=== PATIENT | female | born 1970 | race Caucasian/White ===

== ENCOUNTER 2017-09-16 20:01 | Emergency (ER) | payer BC ==
[2017-09-16] MEDS ORDERED: IBUPROFEN 200 MG TAB PO ONE (20:33)
[2017-09-16] MEDS ORDERED: IBUPROFEN 400 MG TAB ONE (20:33)
--- NOTE | 2017-09-16 21:27 | EDPHYS ---
Physician Documentation [facility] Name: Saritha Rosas Age: 47 yrs Sex: Female : 1970 Arrival Date: 09/16/2017 Time: 20:06 Bed 25 Private MD: ED Physician Sujit Duran HPI: 09/16 21:14 This 47 yrs old Female presents to ER via Wheelchair with complaints of Inner gs thigh pain Right, Fall Injury. 21:14 The patient presents with an injury, pain, that is acute. The complaints affect the gs medial aspect of right thigh. Context: The problem was sustained at home, resulted from a mis-step, hyper abduction. Onset: The symptoms/episode began/occurred acutely, just prior to arrival. Modifying factors: the symptoms are aggravated by movement. Associated signs and symptoms: Pertinent negatives calf tenderness, numbness, weakness. Severity of symptoms: At their worst the symptoms were moderate, in the emergency department the symptoms are unchanged. The patient has not experienced similar symptoms in the past. 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 - Social history:: Smoking status: Patient/guardian denies using tobacco. ROS: 21:23 All other systems are negative. gs Exam: 21:23 Head/Face: Normocephalic, atraumatic. Eyes: Pupils equal round and reactive to light, gs extra-ocular motions intact. Lids and lashes normal. Conjunctiva and sclera are non-icteric and not injected. Cornea within normal limits. Periorbital areas with no swelling, redness, or edema. ENT: Nares patent. No nasal discharge, no septal abnormalities noted. Tympanic membranes are normal and external auditory canals are clear. Oropharynx with no redness, swelling, or masses, exudates, or evidence of obstruction, uvula midline. Mucous membranes moist. Neck: Trachea midline, no thyromegaly or masses palpated, and no cervical lymphadenopathy. Supple, full range of motion without nuchal rigidity, or vertebral point tenderness. No Meningismus. Chest/axilla: Normal chest wall appearance and motion. Nontender with no deformity. No lesions are appreciated. Cardiovascular: Regular rate and rhythm with a normal S1 and S2. No gallops, murmurs, or rubs. Normal PMI, no JVD. No pulse deficits. Respiratory: Lungs have equal breath sounds bilaterally, clear to auscultation and percussion. No rales, rhonchi or wheezes noted. No increased work of breathing, no retractions or nasal flaring. Abdomen/GI: Soft, non-tender, with normal bowel sounds. No distension or tympany. No guarding or rebound. No evidence of tenderness throughout. Back: No spinal tenderness. No costovertebral tenderness. Full range of motion. Skin: Warm, dry with normal turgor. Normal color with no rashes, no lesions, and no evidence of cellulitis. Neuro: Awake and alert, GCS 15, oriented to person, place, time, and situation. Cranial nerves II-XII grossly intact. Motor strength 5/5 in all extremities. Sensory grossly intact. Cerebellar exam normal. Normal gait. 21:23 Constitutional: The patient appears alert, awake. 21:23 Musculoskeletal/extremity: Extremities: noted in the medial aspect of right thigh: decreased ROM, tenderness, noted in the pelvis: no evidence of deformity, swelling, tenderness, Circulation is intact in all extremities. Vital Signs: 20:13 BP 120 / 85; Pulse 69; Resp 15; Temp 97.6; Pulse Ox 100% on R/A; Weight 129.27 kg; la1 Height 5 ft. 11 in. (180.34 cm); 20:23 BP 136 / 75; Pulse 70; Resp 18; Pulse Ox 100% ; tl3 21:22 BP 135 / 76; Pulse 68; Resp 16; Pulse Ox 100% ; tl3 20:13 Body Mass Index 39.75 (129.27 kg, 180.34 cm) la1 MDM: 20:27 Patient medically screened. gs 21:23 Differential diagnosis: abrasion, muscle strain. Data reviewed: vital signs, nurses gs notes. Administered Medications: 20:32 Drug: Motrin 600 mg Route: PO; tl3 21:23 Follow up: Response: No adverse reaction; Pain is unchanged, physician notified tl3 Disposition: 09/16/17 21:26 Discharged to Home. Impression: Strain of adductor muscle, fascia and tendon of right thigh. - Condition is Stable. - Discharge Instructions: Muscle Strain. - Medication Reconciliation Form, Thank You Letter, Antibiotic Education, Prescription Opioid Use form. - Follow up: Private Physician; When: 2 - 3 days; Reason: Re-evaluation by your physician. Follow up: Eb Aponte MD; When: 2 - 3 days; Reason: Re-evaluation by your physician. Signatures: Russell Giordano RN RN la1 Sujit Duran MD MD Yasmine Gallagher RN RN tl3
--- NOTE | 2017-09-16 21:27 | ER ---
Nurse's Notes [facility] Name: Saritha Rosas Age: 47 yrs Sex: Female : 1970 Arrival Date: 09/16/2017 Time: 20:06 Bed 25 Private MD: Diagnosis: Strain of adductor muscle, fascia and tendon of right thigh Presentation: 09/16 20:12 Presenting complaint: Patient states: a couple of hours ago I was lifting and rotating la1 something and My right foot went out from under me and caused me to do almost a split. I felt/heard a pop in the back of my right thigh. Transition of care: patient was not received from another setting of care. Onset of symptoms was September 16, 2017. Care prior to arrival: None. 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 - Social history:: Smoking status: Patient/guardian denies using tobacco. Screenin:23 Abuse screen: Denies threats or abuse. Nutritional screening: No deficits noted. tl3 Tuberculosis screening: No symptoms or risk factors identified. Fall Risk None identified. Assessment: 20:23 General: Appears uncomfortable, well groomed, well developed, well nourished, Behavior tl3 is calm, cooperative, appropriate for age. Pain: Complains of pain in right leg Pain currently is 10 out of 10 on a pain scale. Neuro: Level of Consciousness is awake, alert, obeys commands, Oriented to person, place, time, situation, Appropriate for age. Cardiovascular: Heart tones S1 S2 present. Respiratory: Airway is patent Trachea midline Respiratory effort is even, unlabored. GI: No signs and/or symptoms were reported involving the gastrointestinal system. : No signs and/or symptoms were reported regarding the genitourinary system. EENT: No signs and/or symptoms were reported regarding the EENT system. Derm: No signs and/or symptoms reported regarding the dermatologic system. Musculoskeletal: Reports pain in right leg since today. Injury Description: pt stepped on a [employer] toy truck and did the splits, she states that she felt something "pop", walking is difficult, abrasion to left knee. 21:22 Reassessment: No changes from previously documented assessment. Patient and/or family tl3 updated on plan of care and expected duration. Pain level reassessed. Patient is alert, oriented x 3, equal unlabored respirations, skin warm/dry/pink. pt ambulated around room, still in pain, MD notified. Vital Signs: 20:13 BP 120 / 85; Pulse 69; Resp 15; Temp 97.6; Pulse Ox 100% on R/A; Weight 129.27 kg; la1 Height 5 ft. 11 in. (180.34 cm); 20:23 BP 136 / 75; Pulse 70; Resp 18; Pulse Ox 100% ; tl3 21:22 BP 135 / 76; Pulse 68; Resp 16; Pulse Ox 100% ; tl3 20:13 Body Mass Index 39.75 (129.27 kg, 180.34 cm) la1 ED Course: 20:06 Patient arrived in ED. al2 20:12 Triage completed. la1 20:13 Arm band placed on left wrist. la1 20:18 Yasmine Gallagher, RN is Primary Nurse. tl3 20:20 Sujit Duran MD is Attending Physician. gs 20:23 Resting quietly. tl3 20:23 Patient has correct armband on for positive identification. Bed in low position. Call tl3 light in reach. Side rails up X2. 20:23 No provider procedures requiring assistance completed. tl3 21:25 Eb Aponte MD is Referral Physician. gs 23:59 Patient did not have IV access during this emergency room visit. tl3 Administered Medications: 20:32 Drug: Motrin 600 mg Route: PO; tl3 21:23 Follow up: Response: No adverse reaction; Pain is unchanged, physician notified tl3 Outcome: 21:26 Discharge ordered by MD. gs 21:46 Patient left the ED. tl3 21:46 Condition: good tl3 21:46 Discharged to home ambulatory. tl3 21:46 Discharge instructions given to patient, Instructed on discharge instructions, follow up and referral plans. medication usage, Demonstrated understanding of instructions, follow-up care, medications, stressed Motrin for pain and swelling, follow up with PCP as needed, return to ED with worsening S/S Signatures: Russell Giordano, RN RN la1 Sujit Duran MD MD gs Love, Angelica al2 Lowrey, Tammy, GEETHA RN tl3
== END 2017-09-16 21:46 | disposition home or self-care (01) ==
LOC: ER 20:01
DX: S76.211A Strain of adductor muscle, fascia and tendon of right thigh, initial encounter (principal); X58.XXXA Exposure to other specified factors, initial encounter; Y93.9 Activity, unspecified; Y92.009 Unspecified place in unspecified non-institutional (private) residence as the place of occurrence of the external cause
CPT/HCPCS: 99283